=== PATIENT | male | born 1940 | race Caucasian/White ===

== ENCOUNTER → 2020-06-21 | Outpatient (CLI) | payer MEDICARE ==
[2020-06-15 11:00] VITALS: BP 116/41
[~2020-06-21] MED LIST: ASPI-630 PO; CARV25TA2 PO; CILO100T PO; CLOP75TA PO; CRESTOR40 MG PO; EZET10TA20 PO; GARL10002 PO; LOSA1TAB25 PO; NIFE60TA90 PO; OMEG-117 PO; VITA25006 PO; VITA400C37 PO
--- NOTE | 2020-06-21 16:01 | CARD ---
MR#: [id number] Date of Study: 06/21/2020 Ordering Physician: JANICE RAMIREZ, Referring Physician: JANICE RAMIREZ, Tech: Aimee Marquez [facility] APPROVED REPORT EXAM: Two-dimensional and M-mode echocardiogram with Doppler and color Doppler. Other Information Quality : Good INDICATION Cardiac Disease: CAD Surgery/Intervention CABG: Date: 1995 2D DIMENSIONS Left Atrium(2D)4.6 (1.6-4.0cm)IVSd1.0 (0.7-1.1cm) Aortic Root(2D)3.0 (2.0-3.7cm)LVDd5.5 (3.9-5.9cm) LVOT Diameter2.0 (1.8-2.4cm)PWd1.0 (0.7-1.1cm) LVDs3.4 (2.5-4.0cm)FS (%) 39.0 % SV101.7 mlLVEF(%)68.8 (>50%) Aortic Valve AoV Peak Omid.190.3cm/sAoV VTI46.1cm AO Peak GR.14.5mmHgLVOT Peak Omid.124.0cm/s AO Mean GR.9mmHgAVA (VMAX)2.10cm2 KATHI (VTI)2.27rb4VL P 1/2 Dhvi940ha Mitral Valve MV E Avjkzkmh758.6cm/sMV DECEL DOVL308ra MV A Pkcfgffc31.8cm/sE/A Ratio1.8 Tricuspid Valve TR P. Zgzrpfdr818uy/sRAP AKSQRTWQ2zpQd TR Peak Gr.51acYpIWKJ77csOv Pulmonary Vein S1 Rwjsqsol32.9cm/sD2 Mwautwws74.2cm/s LEFT VENTRICLE The left ventricle is normal size. There is normal left ventricular wall thickness. The left ventricu lar systolic function is normal. The Ejection Fraction is 55-60%. There is normal LV segmental wall m otion. Transmitral Doppler flow pattern showed moderate diastolic dysfunction. RIGHT VENTRICLE The right ventricle is normal size. The right ventricular systolic function is normal. ATRIA The left atrium is mildly dilated. The right atrium size is normal. The interatrial septum is intact with no evidence for an atrial septal defect or patent foramen ovale as noted on 2-D or Doppler imagi ng. AORTIC VALVE The aortic valve is calcified but opens well. Doppler and Color Flow revealed mild aortic regurgitati on. There is no significant aortic valvular stenosis. MITRAL VALVE The mitral valve is calcified but opens well. There is no evidence of mitral valve prolapse. There is no mitral valve stenosis. Doppler and Color-flow revealed moderate mitral regurgitation. TRICUSPID VALVE The tricuspid valve is normal in structure and function. Doppler and Color Flow revealed trace tricus pid regurgitation. There is no tricuspid valve stenosis. PULMONIC VALVE The pulmonic valve is not well visualized. Doppler and Color Flow revealed mild pulmonic valvular reg urgitation. There is no pulmonic valvular stenosis. GREAT VESSELS The aortic root is normal in size. The ascending aorta is not well seen. The IVC is normal in size an d collapses <50% with inspiration. PERICARDIAL EFFUSION There is no evidence of significant pericardial effusion. Critical Notification Critical Value: No <Conclusion> The left ventricular systolic function is normal. The Ejection Fraction is 55-60%. There is normal LV segmental wall motion. Mild aortic regurgitation. Moderate mitral regurgitation. There is no evidence of significant pericardial effusion. Signed by : Yifan Quiñonez, Electronically Approved : 06/21/2020 16:00:33
== END ==
LOC: ECHO 13:56
PROVIDERS: ATTEND Internal Medicine Cardiovascular Disease
DX: I08.8 Other rheumatic multiple valve diseases (principal); I25.10 Atherosclerotic heart disease of native coronary artery without angina pectoris
CPT/HCPCS: 93306

== ENCOUNTER 2021-11-15 17:52 | Inpatient (IN) | payer MEDICARE ==
[~2021-11-15] VITALS: Ht 175.3 cm; Wt 82.3 kg
--- NOTE | 2021-11-15 18:13 | PHYS DOC ---
Past Medical History Past Medical History: CAD, High Cholesterol, Heart Disease, Hypertension, ID, Renal Disease, Other Additional Past Medical Histor: PAD Past Surgical History: Coronary Bypass Surgery, Other Additional Past Surgical Histo: R EYE, cardiac cath with stents Smoking Status: Former Smoker Alcohol Use: Occasionally General Adult EDM: Chief Complaint: CHEST PAIN HPI: HPI: Patient is a 81 year old male past medical history of coronary artery disease ID hypertension hyperlipidemia presents with a chief complaint of chest pain. Patient states chest pain started suddenly approximately 1 hour prior to arrival 1700 hrs. located in his left chest with numbness and tingling down radiating down his right arm. Patient states his chest pain hurt like hell. He described it as a pressure and rated it a 10 out of 10. Patient self treated with sublingual nitroglycerin with mild relief. Upon EMS arrival they treated patient with nitro and aspirin. On arrival patient states his pain is a 5 out of 10 but is still present. Patient states he has associated shortness of breath and feels nauseous. Patient states current pain feels like previous heart attacks. Review of Systems: Review of Systems: Constitutional: Denies fever or chills. [] Eyes: Denies change in visual acuity. [] HENT: Denies nasal congestion or sore throat. [] Respiratory: Denies cough Positive shortness of breath. [] Cardiovascular: Positive chest pain GI: Denies abdominal pain, Positive nausea, denies vomiting, bloody stools or diarrhea. [] : Denies dysuria. [] Musculoskeletal: Denies back pain or joint pain. [] Integument: Denies rash. [] Neurologic: Denies headache, focal weakness or sensory changes. [] Endocrine: Denies polyuria or polydipsia. [] Lymphatic: Denies swollen glands. [] Psychiatric: Denies depression or anxiety. [] Heart Score: C/O Chest Pain: Yes HEART Score for Chest Pain: HEART Score for Chest Pain Response (Comments) Value History Moderately Suspicious [address] Depression 2 Age > 65 2 Risk Factors >3 Risk Factors or Hx CAD 2 Total 7 Risk Factors: Risk Factors: DM, Current or recent (<one month) smoker, HTN, HLP, family history of CAD, obesity. Risk Scores: Score 0 - 3: 2.5% MACE over next 6 weeks - Discharge Home Score 4 - 6: 20.3% MACE over next 6 weeks - Admit for Clinical Observation Score 7 - 10: 72.7% MACE over next 6 weeks - Early Invasive Strategies Allergies: Allergies: Allergies Coded Allergies Type Severity Reaction Last Updated Verified No Known Drug Allergies 11/15/21 No Physical Exam: PE: Constitutional: Well developed, well nourished, no acute distress, non-toxic appearance. [] HENT: Normocephalic, atraumatic, bilateral external ears normal, oropharynx moist, no oral exudates, nose normal. [] Eyes: PERRLA, EOMI, conjunctiva normal, no discharge. [] Neck: Normal range of motion, no tenderness, supple, no stridor. [] Cardiovascular:Heart rate regular rhythm, no murmur [] Lungs & Thorax: Bilateral breath sounds clear to auscultation [] Abdomen: Bowel sounds normal, soft, no tenderness, no masses, no pulsatile masses. [] Skin: Warm, dry, no erythema, no rash. [] Back: No tenderness, no CVA tenderness. [] Extremities: No tenderness, no cyanosis, no clubbing, ROM intact, no edema. [] Neurologic: Alert and oriented X 3, normal motor function, normal sensory function, no focal deficits noted. [] Psychologic: Affect normal, judgement normal, mood normal. [] Current Patient Data: Vital Signs: Vital Signs Date Time Temp Pulse Resp B/P (MAP) Pulse Ox O2 Delivery O2 Flow Rate FiO2 11/15/21 17:58 98.4 73 24 206/90 (128) 97 Room Air 98.4 EKG: EKG: Performed at 1801 Rate 72 Normal sinus rhythm No ST elevation No ST depression No acute ID [] Radiology/Procedures: Radiology/Procedures: []Exam: Chest one view INDICATION: Chest pain TECHNIQUE: Frontal view of the chest Comparisons: 06/13/2021 FINDINGS: Sternotomy wires are noted. The cardiomediastinal silhouette and pulmonary vessels are within normal limits. The lung and pleural spaces are clear. IMPRESSION: No acute pulmonary process. Course & Med Decision Making: Course & Med Decision Making Pertinent Labs and Imaging studies reviewed. (See chart for details) [] EMS treated patient with aspirin prior to arrival. Patient also received several doses of nitro with some improvement of his chest pain. Patient work-up negative so far. Due to patient's extensive past medical history and heart score we will place patient in the hospital for further evaluation. Sonido Disclaimer: Sonido Disclaimer: This electronic medical record was generated, in whole or in part, using a voice recognition dictation system. Departure Departure Impression: Primary Impression: Chest pain Disposition: 09 ADMITTED INPATIENT Admitting Physician: GRACIA Referrals: ANDREA GALLEGOS APRN (PCP) JENNIFER DIANE DO Nov 15, 2021 18:13
--- NOTE | 2021-11-15 18:23 | RAD ---
Exam: Chest one view INDICATION: Chest pain TECHNIQUE: Frontal view of the chest Comparisons: 06/13/2021 FINDINGS: Sternotomy wires are noted. The cardiomediastinal silhouette and pulmonary vessels are within normal limits. The lung and pleural spaces are clear. IMPRESSION: No acute pulmonary process. Electronically signed by: Emile Grimm MD (11/15/2021 6:21 PM) DARIANA
[2021-11-15 18:37] LABS: BASO # 0.1 x10^3/uL (0.0-0.2); BASO % 1 % (0-3); EOS # 0.2 x10^3/uL (0.0-0.7); EOS % 3 % (0-3); HEMATOCRIT 30.3 % (39.0-53.0); HEMOGLOBIN 10.1 g/dL (13.0-17.5); LYMPH % 13 % (24-48); MEAN CORPUSCULAR HEMOGLOBIN 31 pg (25-35); MEAN CORPUSCULAR HGB CONC 33 g/dL (31-37); MEAN CORPUSCULAR VOLUME 93 fL (79-100); MONO # 0.7 x10^3/uL (0.0-1.1); MONO % 9 % (0-9); NEUT # 5.5 x10^3/uL (1.8-7.7); NEUT % 73 % (31-73); PLATELET COUNT 186 x10^3/uL (140-400); RED BLOOD COUNT 3.27 x10^6/uL (4.30-5.70); RED CELL DISTRIBUTION WIDTH 12.9 % (11.5-14.5); WHITE BLOOD COUNT 7.5 x10^3/uL (4.0-11.0)
[2021-11-15] MEDS ORDERED: NITROGLYCERIN OINT 1 GM PACKET. TP ONE (18:45)
[2021-11-15 18:49] LABS: CALCIUM 9.1 mg/dL (8.5-10.1); CREATININE 2.2 mg/dL (0.7-1.3); POTASSIUM 3.9 mmol/L (3.5-5.1)
[2021-11-15 18:54] LABS: ALBUMIN 4.1 g/dL (3.4-5.0); ALBUMIN/GLOBULIN RATIO 1.3 (1.0-1.7); TOTAL BILIRUBIN 0.4 mg/dL (0.2-1.0); TOTAL PROTEIN 7.2 g/dL (6.4-8.2)
[2021-11-15] MEDS ORDERED: NITROGLYCERIN SUBLINGUAL 0.4 MG BOTTLE OF 25. SL PRN (19:30)
[2021-11-15] MEDS ORDERED: MORPHINE SULFATE 2 MG/ML INJ. IVP PRN (19:30)
[2021-11-15] MEDS ORDERED: HYDROcodone/APAP 5/325MG 1 TAB TABLET PO ONE (19:30)
[2021-11-15] MEDS ORDERED: ONDANSETRON PF 4 MG/2 ML VIAL. IVP PRN (19:30)
[2021-11-16] MEDS ORDERED: ONDANSETRON PF 4 MG/2 ML VIAL. ONE (00:15)
--- NOTE | 2021-11-16 00:52 | EKG ---
[facility] [address] [place] [address] Test Date: 2021-11-15 Test Time: 18:01:46 Pat Name: ALEA MCCLELLAN Department: Room: 671 1 Gender: M Hvac Tech: : 1940 Requested By: JENNIFER DIANE Order Number: [id number] Reading MD: Pb Mcclelland MD Measurements Intervals [place] Rate: 72 P: 27 IA: 192 QRS: 24 QRSD: 98 T: 46 QT: 392 QTc: 431 Interpretive Statements SINUS RHYTHM CONSIDERL LATERAL ISCHEMIA Electronically Signed On 11-16-2021 16:14:22 CDT by Pb Mcclelland MD
[2021-11-16 03:01] VITALS: BP 147/43
[2021-11-16 07:00] VITALS: BP 168/58
--- NOTE | 2021-11-16 07:42 | PDOC1 ---
History and Physical Date of Admission Date of Admission DATE: 11/16/21 TIME: 07:42 Identification/Chief Complaint Chief Complaint Chest pain Source Source: Patient History of Present Illness History of Present Illness Mr Rhodes is a 81yo male with PMHx HTN, HLD, CAD s/p remote CABG and subsequent PCI in 2010 and 2019 told his he thought he was having a heart attack. He noted substerntal chest pain at rest 8/10 Took 2 NTG with minimal relief. EMS was called. Was given nitro and ASA en route, which improved pain. No recent fevers/illness. Has a h/o CAD with CABG in and subsequent stent placement in 2010. Follows with [facility]. No recent cardiac cath or stress test. EKG sinus rhythm 72 bpm normal axis and intervals no T WI or ST segment elevation minimal ST depressions in lead I, QTC 431 Chest radiograph with no acute abnormalities. Past Medical History Cardiovascular: CAD, HTN, Hyperlipidemia, Other Pulmonary: No pertinent hx GI: GERD Heme/Onc: No pertinent hx Hepatobiliary: No pertinent hx Psych: No pertinent hx Musculoskeletal: Osteoarthritis Rheumatologic: No pertinent hx Infectious disease: No pertinent hx Renal/: Chronic renal insuff Past Surgical History Past Surgical History: CABG Family History Family History: Hypertension Social History Smoke: No ALCOHOL: none Drugs: None Current Problem List Problem List Problems Medical Problems: (1) Chest pain Status: Acute Current Medications Current Medications Current Medications Nitroglycerin (Nitro-Bid Oint) 1 inch 1X ONCE TP Last administered on 11/15/21at 18:56; Start 11/15/21 at 18:45; Stop 11/15/21 at 18:46; Status DC Acetaminophen/ Hydrocodone Bitart (Lortab 5/325) 1 tab 1X ONCE PO Last administered on 11/15/21at 20:06; Start 11/15/21 at 19:30; Stop 11/15/21 at 19:31; Status DC Ondansetron HCl (Zofran) 4 mg PRN Q8HRS PRN IVP NAUSEA/VOMITING; Start 11/15/21 at 19:30; Stop 11/16/21 at 19:29 Morphine Sulfate (Morphine Sulfate) 2 mg PRN Q2HR PRN IVP PAIN; Start 11/15/21 at 19:30; Stop 11/16/21 at 19:29 Nitroglycerin (Nitrostat) 0.4 mg PRN Q5MIN PRN SL CHEST PAIN; Start 11/15/21 at 19:30; Stop 11/16/21 at 19:29 Active Scripts Active Clopidogrel (Clopidogrel Bisulfate) 75 Mg Tablet 1 Tab PO DAILY Crestor (Rosuvastatin Calcium) 40 Mg Tablet 40 Mg PO HS Nifedipine Er (Nifedipine) 60 Mg Tab.er.24 60 Mg PO DAILY Losartan-Hctz 100-12.5 Mg Tab (Losartan/Hydrochlorothiazide) 1 Each Tablet 1 Tab PO DAILY Carvedilol 25 Mg Tablet 12.5 Mg PO BIDWMEALS Aspirin 81 Mg Tab.chew 81 Mg PO DAILY Reported Zetia (Ezetimibe) 10 Mg Tablet 10 Mg PO DAILY Garlic 1,000 Mg Capsule 1,000 Mg PO DAILY Vitamin E (Vitamin E Acetate) 400 Unit Capsule 400 Unit PO DAILY Fish Oil 1,200 mg Softgel ([place]-3/Dha/Epa/Fish Oil) 1 Each Capsule.dr 1 Cap PO DAILY 30 Days Noxifol-D3 2,500 Unit-1 mg Tab (Vitamin D3/Folic Acid) 2,500 Unit Tablet 1 Tab PO DAILY 30 Days Allergies Allergies: Coded Allergies: No Known Drug Allergies (Unverified , 11/15/21) ROS General: YES: Fatigue, Malaise; No: Chills, Night Sweats, Appetite, Other PSYCHOLOGICAL ROS: No: Anxiety, Behavioral Disorder, Concentration difficultie, Decreased libido, Depression, Disorientation, Hallucinations, Hostility, Irritablity, Memory difficulties, Mood Swings, Obsessive thoughts, Physical abuse, Sexual abuse, Sleep disturbances, Suicidal ideation, Other Eyes: No Blurry vision, No Decreased vision, No Double vision, No Dry eyes, No Excessive tearing, No Eye Pain, No Itchy Eyes, No Loss of vision, No Photophobia, No Scotomata, No Uses contacts, No Uses glasses, No Other HEENT: No: Heacaches, Visual Changes, Hearing change, Nasal congestion, Nasal discharge, Oral lesions, Sinus pain, Sore Throat, Epistaxis, Sneezing, Snoring, Tinnitus, Vertigo, Vocal changes, Other ALLERGY AND IMMUNOLOGY: No: Hives, Insect Bite Sensitivity, Itchy/Watery Eyes, Nasal Congestion, Post Nasal Drip, Seasonal Allergies, Other Hematological and Lymphatic: No: Bleeding Problems, Blood Clots, Blood Transfusions, Brusing, Night Sweats, Pallor, Swollen Lymph Nodes, Other ENDOCRINE: No: Breast Changes, Galactorrhea, Hair Pattern Changes, Hot Flashes, Malaise/lethargy, Mood Swings, Palpitations, Polydipsia/polyuria, Skin Changes, Temperature Intolerance, Unexpected Weight Changes, Other Breast: No New/Changing Breast Lumps, No Nipple changes, No Nipple discharge, No Other Respiratory: No: Cough, Hemoptysis, Orthopnea, Pleuritic Pain, Shortness of breath, SOB with excertion, Sputum Changes, Stridor, Tachypnea, Wheezing, Other Cardiovascular: yes Chest Pain; No Palpitations, No Orthopnea, No Paroxysmal Noc. Dyspnea, No Edema, No Lt Headedness, No Other Gastrointestinal: No Nausea, No Vomiting, No Abdominal Pain, No Diarrhea, No Constipation, No Melena, No Hematochezia, No Other Genitourinary: No Dysuria, No Frequency, No Incontinence, No Hematuria, No Retention, No Discharge, No Urgency, No Pain, No Flank Pain, No Other, No , No , No , No , No , No , No Musculoskeletal: No Gait Disturbance, No Joint Pain, No Joint Stiffness, No Joint Swelling, No Muscle Pain, No Muscular Weakness, No Pain In:, No Swelling In:, No Other Neurological: No Behavorial Changes, No Bowel/Bladder ControlChng, No Confusion, No Dizziness, No Gait Disturbance, No Headaches, No Impaired Coord/balance, No Memory Loss, No Numbness/Tingling, No Seizures, No Speech Problems, No Tremors, No Visual Changes, No Weakness, No Other Skin: No Dry Skin, No Eczema, No Hair Changes, No Lumps, No Mole Changes, No Mottling, No Nail Changes, No Pruritus, No Rash, No Skin Lesion Changes, No Other, No Acne Physical Exam General: Alert, Oriented X3, Cooperative, mild distress HEENT: Atraumatic, PERRLA, EOMI, Mucous membr. moist/pink Lungs: Clear to auscultation, Normal air movement Heart: S1S2, RRR, no thrills, no rubs, no gallops, no murmurs Abdomen: Normal bowel sounds, Soft, No tenderness, No hepatosplenomegaly, No masses Rectal Exam: not examined Extremities: No clubbing, No cyanosis, No edema, Normal pulses, No tende rness/swelling Skin: No rashes, No breakdown, No significant lesion Neuro: Normal gait, Normal speech, Strength at 5/5 X4 ext, Normal tone, Sensation intact, Cranial nerves 3-12 NL, Reflexes 2+ Psych/Mental Status: Mental status NL, Mood NL Vitals Vitals Vital Signs Date Time Temp Pulse Resp B/P (MAP) Pulse Ox O2 Delivery O2 Flow Rate FiO2 11/16/21 03:01 97.8 50 18 147/43 (77) 98 Nasal Cannula 2.0 97.8 Labs Labs Laboratory Tests Test 11/15/21 18:20 11/16/21 02:00 White Blood Count 7.5 x10^3/uL (4.0-11.0) Red Blood Count 3.27 x10^6/uL (4.30-5.70) Hemoglobin 10.1 g/dL (13.0-17.5) Hematocrit 30.3 % (39.0-53.0) Mean Corpuscular Volume 93 fL (79-100) Mean Corpuscular Hemoglobin 31 pg (25-35) Mean Corpuscular Hemoglobin Concent 33 g/dL (31-37) Red Cell Distribution Width 12.9 % (11.5-14.5) Platelet Count 186 x10^3/uL (140-400) Neutrophils (%) (Auto) 73 % (31-73) Lymphocytes (%) (Auto) 13 % (24-48) Monocytes (%) (Auto) 9 % (0-9) Eosinophils (%) (Auto) 3 % (0-3) Basophils (%) (Auto) 1 % (0-3) Neutrophils # (Auto) 5.5 x10^3/uL (1.8-7.7) Lymphocytes # (Auto) 1.0 x10^3/uL (1.0-4.8) Monocytes # (Auto) 0.7 x10^3/uL (0.0-1.1) Eosinophils # (Auto) 0.2 x10^3/uL (0.0-0.7) Basophils # (Auto) 0.1 x10^3/uL (0.0-0.2) Sodium Level 142 mmol/L (136-145) Potassium Level 3.9 mmol/L (3.5-5.1) Chloride Level 107 mmol/L (98-107) Carbon Dioxide Level 25 mmol/L (21-32) Anion Gap 10 (6-14) Blood Urea Nitrogen 53 mg/dL (8-26) Creatinine 2.2 mg/dL (0.7-1.3) Estimated GFR (Cockcroft-Gault) 29.0 BUN/Creatinine Ratio 24 (6-20) Glucose Level 162 mg/dL (70-99) Calcium Level 9.1 mg/dL (8.5-10.1) Total Bilirubin 0.4 mg/dL (0.2-1.0) Aspartate Amino Transf (AST/SGOT) 8 U/L (15-37) Alanine Aminotransferase (ALT/SGPT) 28 U/L (16-63) Alkaline Phosphatase 57 U/L (46-116) Troponin I High Sensitivity 50 ng/L (4-75) 650 ng/L (4-75) Total Protein 7.2 g/dL (6.4-8.2) Albumin 4.1 g/dL (3.4-5.0) Albumin/Globulin Ratio 1.3 (1.0-1.7) Laboratory Tests Test 11/15/21 18:20 11/16/21 02:00 White Blood Count 7.5 x10^3/uL (4.0-11.0) Red Blood Count 3.27 x10^6/uL (4.30-5.70) Hemoglobin 10.1 g/dL (13.0-17.5) Hematocrit 30.3 % (39.0-53.0) Mean Corpuscular Volume 93 fL (79-100) Mean Corpuscular Hemoglobin 31 pg (25-35) Mean Corpuscular Hemoglobin Concent 33 g/dL (31-37) Red Cell Distribution Width 12.9 % (11.5-14.5) Platelet Count 186 x10^3/uL (140-400) Neutrophils (%) (Auto) 73 % (31-73) Lymphocytes (%) (Auto) 13 % (24-48) Monocytes (%) (Auto) 9 % (0-9) Eosinophils (%) (Auto) 3 % (0-3) Basophils (%) (Auto) 1 % (0-3) Neutrophils # (Auto) 5.5 x10^3/uL (1.8-7.7) Lymphocytes # (Auto) 1.0 x10^3/uL (1.0-4.8) Monocytes # (Auto) 0.7 x10^3/uL (0.0-1.1) Eosinophils # (Auto) 0.2 x10^3/uL (0.0-0.7) Basophils # (Auto) 0.1 x10^3/uL (0.0-0.2) Sodium Level 142 mmol/L (136-145) Potassium Level 3.9 mmol/L (3.5-5.1) Chloride Level 107 mmol/L (98-107) Carbon Dioxide Level 25 mmol/L (21-32) Anion Gap 10 (6-14) Blood Urea Nitrogen 53 mg/dL (8-26) Creatinine 2.2 mg/dL (0.7-1.3) Estimated GFR (Cockcroft-Gault) 29.0 BUN/Creatinine Ratio 24 (6-20) Glucose Level 162 mg/dL (70-99) Calcium Level 9.1 mg/dL (8.5-10.1) Total Bilirubin 0.4 mg/dL (0.2-1.0) Aspartate Amino Transf (AST/SGOT) 8 U/L (15-37) Alanine Aminotransferase (ALT/SGPT) 28 U/L (16-63) Alkaline Phosphatase 57 U/L (46-116) Troponin I High Sensitivity 50 ng/L (4-75) 650 ng/L (4-75) Total Protein 7.2 g/dL (6.4-8.2) Albumin 4.1 g/dL (3.4-5.0) Albumin/Globulin Ratio 1.3 (1.0-1.7) Images Images Chest radiograph: Sternotomy wires are noted. The cardiomediastinal silhouette and pulmonary vessels are within normal limits. The lung and pleural spaces are clear. IMPRESSION: No acute pulmonary process. VTE Prophylaxis Ordered VTE Prophylaxis Devices: Yes VTE Pharmacological Prophylaxi: Yes Assessment/Plan Assessment/Plan NSTEMI - on heparin GTT. High risk CAD, classic symptoms relieved with 2x NTG. CAD; s/p CABG 96 and PCI/stent in 2010. S/P PCI with stenting 06/14/2020 to saphenous vein graft to the obtuse marginal as well. Hypertension - prn hydralazine, nitropaste Hyperlipidemia -statin CKD - stable, will monitor renal function Carotid arterial disease - historic Chronic venous insufficiency FEN - NPO PPX - heparin FULL CODE Dispo - inpatient Justifications for Admission Other Justification CHARMAINE FLORIAN MD Nov 16, 2021 07:42
[2021-11-16] MEDS ORDERED: ONDANSETRON PF 4 MG/2 ML VIAL. IVP PRN (07:45)
[2021-11-16] MEDS ORDERED: ACETAMINOPHEN 325 MG TABLET. PO PRN (07:45)
[2021-11-16] MEDS ORDERED: HYDR-2869 PO (08:13)
[2021-11-16] MEDS ORDERED: HEPARIN for IV BOLUS 10,000 UNIT/10 ML VIAL. IV PRN (08:15)
[2021-11-16] MEDS ORDERED: NIFE30TA15 PO (08:17)
[2021-11-16] MEDS ORDERED: BRIM5DRO EACHEYE (08:25)
[2021-11-16] MEDS ORDERED: TORS10TA3 PO (08:46)
[2021-11-16] MEDS ORDERED: HEPARIN for IV BOLUS 10,000 UNIT/10 ML VIAL. IV ONE (09:00)
[2021-11-16] MEDS: HEPARIN 25,000UTS/250ML PREMIX 250 ML IV PRN (09:39)
[2021-11-16 11:00] VITALS: BP 177/63
[2021-11-16] MEDS ORDERED: IV NORMAL SALINE 1000ML BAG 1,000 ML IV ONE (13:45)
[2021-11-16 15:00] VITALS: BP 190/64
--- NOTE | 2021-11-16 16:18 | PDOC2 ---
CARDIOLOGY CONSULT NOTE DATE OF SERVICE: DATE: 11/16/21 TIME: 16:15 CHIEF COMPLAINT: Chest pain HPI: Shimon is a pleasant 81-year-old man who is well-known to our service who comes into the hospital today for acute onset of chest pain. He was noted to have an elevated blood pressure above 200 upon arrival. The patient was in his usual state of health and apparently watching TV when he began to notice sudden onset of chest pain similar nature to 2019 when he had PCI to his left circumflex vein graft. He currently denies any syncope, palpitations, orthopnea or PND. He has been compliant with his medications. He recently also underwent a stress test in July 2021 which was unremarkable. In any case, the patient has been admitted and initiated on appropriate medical therapy including heparinization. PMHX: 1. Coronary artery disease with prior bypass surgery 2. Hypertension 3. Chronic kidney disease SOCHX: No alcohol, tobacco or illicit drug FAMHX: Noncontributory CURRENT MEDS: Current Medications Medications (Trade) Dose Ordered Sig/Vinicio Route PRN Reason Start Time Stop Time Status Last Admin Dose Admin Nitroglycerin (Nitro-Bid Oint) 1 inch 1X ONCE TP 11/15/21 18:45 11/15/21 18:46 DC 11/15/21 18:56 Acetaminophen/ Hydrocodone Bitart (Lortab 5/325) 1 tab 1X ONCE PO 11/15/21 19:30 11/15/21 19:31 DC 11/15/21 20:06 Heparin Sodium (Porcine) (Heparin Sodium) 4,000 unit 1X ONCE IV 11/16/21 09:00 11/16/21 09:01 DC 11/16/21 09:38 Heparin Sodium/ Dextrose 250 ml @ 9.768 mls/ hr CONT PRN IV PER PROTOCOL 11/16/21 08:15 11/16/21 09:39 ALLERGIES: Allergies Coded Allergies Type Severity Reaction Last Updated Verified No Known Drug Allergies 11/15/21 No ROS: Negative for 10 out of 14 systems reviewed unless otherwise mentioned above in HPI PHYSICAL EXAM: Vital Signs/I&O: Vital Signs Date Time Temp Pulse Resp B/P (MAP) Pulse Ox O2 Delivery O2 Flow Rate FiO2 11/16/21 11:00 98.4 50 18 177/63 (101) 97 Nasal Cannula 2.0 98.4 I & O 311/15/21 11/16/21 15:00 23:00 07:00 Intake Total 500 ml Output Total 425 ml Balance -425 ml 500 ml Physical Exam: GEN.: No apparent distress. Alert and oriented. HEENT: Head is normocephalic, atraumatic NECK: Supple. LUNGS: Clear to auscultation. HEART: RRR, S1, S2 present. Peripheral pulses intact ABDOMEN: Soft, nontender. Positive bowel sounds. EXTREMITIES: Without any cyanosis. NEUROLOGIC: Normal speech, normal tone PSYCHIATRIC: Normal affect, normal mood. SKIN: No ulcerations DIAGNOSTIC TESTING: Myocardial enzymes are elevated at 653. EKG reviewed and demonstrates mild lateral ST segment depression. Telemetry reviewed Lab Laboratory Tests Test 11/15/21 18:20 11/16/21 02:00 11/16/21 08:20 11/16/21 11:14 White Blood Count 7.5 x10^3/uL (4.0-11.0) Red Blood Count 3.27 x10^6/uL (4.30-5.70) L Hemoglobin 10.1 g/dL (13.0-17.5) L Hematocrit 30.3 % (39.0-53.0) L Mean Corpuscular Volume 93 fL (79-100) Mean Corpuscular Hemoglobin 31 pg (25-35) Mean Corpuscular Hemoglobin Concent 33 g/dL (31-37) Red Cell Distribution Width 12.9 % (11.5-14.5) Platelet Count 186 x10^3/uL (140-400) Neutrophils (%) (Auto) 73 % (31-73) Lymphocytes (%) (Auto) 13 % (24-48) L Monocytes (%) (Auto) 9 % (0-9) Eosinophils (%) (Auto) 3 % (0-3) Basophils (%) (Auto) 1 % (0-3) Neutrophils # (Auto) 5.5 x10^3/uL (1.8-7.7) Lymphocytes # (Auto) 1.0 x10^3/uL (1.0-4.8) Monocytes # (Auto) 0.7 x10^3/uL (0.0-1.1) Eosinophils # (Auto) 0.2 x10^3/uL (0.0-0.7) Basophils # (Auto) 0.1 x10^3/uL (0.0-0.2) Sodium Level 142 mmol/L (136-145) Potassium Level 3.9 mmol/L (3.5-5.1) Chloride Level 107 mmol/L (98-107) Carbon Dioxide Level 25 mmol/L (21-32) Anion Gap 10 (6-14) Blood Urea Nitrogen 53 mg/dL (8-26) H Creatinine 2.2 mg/dL (0.7-1.3) H Estimated GFR (Cockcroft-Gault) 29.0 BUN/Creatinine Ratio 24 (6-20) H Glucose Level 162 mg/dL (70-99) H Calcium Level 9.1 mg/dL (8.5-10.1) Total Bilirubin 0.4 mg/dL (0.2-1.0) Aspartate Amino Transf (AST/SGOT) 8 U/L (15-37) L Alkaline Phosphatase 57 U/L (46-116) Troponin I High Sensitivity 50 ng/L (4-75) 650 ng/L (4-75) H 683 ng/L (4-75) H Total Protein 7.2 g/dL (6.4-8.2) Albumin 4.1 g/dL (3.4-5.0) Albumin/Globulin Ratio 1.3 (1.0-1.7) Heparin Anti-Xa Act, Unfractionated 0.30 IU/mL (0.30-0.70) Laboratory Tests 11/15/21 18:20 ASSESSMENT: 1. Non-ST elevation ND 2. Hypertensive urgency 3. Coronary artery disease 4. Dyslipidemia 5. Chronic kidney disease PLAN: 1. We will plan for cardiac catheterization on Thursday. 2. In the meantime continue home medical therapy and will start IV hydration. 3. Supportive care. Obtain echocardiogram. I had a discussion with the patient regarding the risks and benefits especially in light of the patient's chronic kidney disease but it would be appropriate to rule out any occult worsening of his coronary artery disease especially given that the symptoms were acute in nature. Negative this consultation we will follow along closely JANICE RAMIREZ MD Nov 16, 2021 16:18
[2021-11-16] MEDS: CLOPIDOGREL BISULFATE 75 MG TABLET PO SCH (16:32)
[2021-11-16] MEDS: ASPIRIN CHEWABLE 81 MG TABLET. PO SCH (16:32)
[2021-11-16] MEDS: LOSARTAN POTASSIUM 50 MG TABLET. PO SCH (16:33)
[2021-11-16] MEDS: hydroCHLOROthiazide 12.5 MG CAPSULE PO SCH (16:33)
[2021-11-16] MEDS: CARVEDILOL 12.5 MG TABLET. PO SCH (17:10)
[2021-11-16 19:47] VITALS: BP 126/43
[2021-11-16] MEDS: ATORVASTATIN CALCIUM 40 MG TABLET. PO SCH (21:32)
[2021-11-16 23:15] VITALS: BP 130/45
[2021-11-17] VITALS (9 sets, daily range): BP systolic 132–161; BP diastolic 48–80
[2021-11-17 03:53] LABS: HEMATOCRIT 27.2 % (39.0-53.0); HEMOGLOBIN 8.9 g/dL (13.0-17.5); RED BLOOD COUNT 2.93 x10^6/uL (4.30-5.70); RED CELL DISTRIBUTION WIDTH 12.9 % (11.5-14.5); WHITE BLOOD COUNT 7.2 x10^3/uL (4.0-11.0)
[2021-11-17 04:07] LABS: CALCIUM 8.6 mg/dL (8.5-10.1); CREATININE 1.8 mg/dL (0.7-1.3); GFR 36.6
[2021-11-17] MEDS: CARVEDILOL 12.5 MG TABLET. PO SCH ×2 (07:43→17:00)
[2021-11-17] MEDS: HEPARIN 25,000UTS/250ML PREMIX 250 ML IV PRN (08:13)
[2021-11-17] MEDS: hydroCHLOROthiazide 12.5 MG CAPSULE PO SCH (09:00)
[2021-11-17] MEDS: ASPIRIN CHEWABLE 81 MG TABLET. PO SCH (09:12)
[2021-11-17] MEDS: CLOPIDOGREL BISULFATE 75 MG TABLET PO SCH (09:12)
--- NOTE | 2021-11-17 09:46 | PDOC ---
[facility] PROGRESS NOTE Date of Service DOS: DATE: 11/17/21 TIME: 09:43 Chief Complaint Chief Complaint NSTEMI - on heparin GTT. High risk CAD, classic symptoms relieved with 2x NTG. CAD; s/p CABG and PCI/stent in 2010. S/P PCI with stenting 06/14/2020 to saphenous vein graft to the obtuse marginal as well. Hypertension - prn hydralazine, nitropaste Hyperlipidemia -statin CKD - stable, will monitor renal function Carotid arterial disease - historic Chronic venous insufficiency Elevated fasting glucose - check A1c FEN - NPO after midnight PPX - heparin FULL CODE Dispo - inpatient History of Present Illness History of Present Illness Mr Rhodes is a 81yo male with PMHx HTN, HLD, CAD s/p remote CABG and subsequent PCI in 2010 and 2019 told his he thought he was having a heart attack. He noted substernal chest pain at rest 8/10 Took 2 NTG with minimal relief. EMS was called. Was given nitro and ASA en route, which improved pain. No recent fevers/illness. Has a h/o CAD with CABG in and subsequent stent placement in 2010. Follows with [facility]. No recent cardiac cath or stress test. EKG sinus rhythm 72 bpm normal axis and intervals no T WI or ST segment elevation minimal ST depressions in lead I, QTC 431 Chest radiograph with no acute abnormalities. Placed on heparin GTT and admitted for further care with cardiology consultation. 11/17: Chest pain is nearly resolved. No shortness of breath. Does have occasional twinges. After he discussed with cardiology he is opted for left coronary angiogram in the morning on 11/18/2021. Vitals/I&O Vitals/I&O: Vital Signs Date Time Temp Pulse Resp B/P (MAP) Pulse Ox O2 Delivery O2 Flow Rate FiO2 11/17/21 09:13 54 132/49 11/17/21 03:23 98.0 20 95 Nasal Cannula 2.0 98.0 I & O 11/16/21 11/16/21 11/17/21 15:00 23:00 07:00 Intake Total 400 ml 0 ml Output Total 700 ml 200 ml Balance -700 ml 400 ml -200 ml Physical Exam General: Alert, Oriented X3, Cooperative, mild distress Abdomen: Normal bowel sounds, Soft, No tenderness, No hepatosplenomegaly, No masses Extremities: No clubbing, No cyanosis, No edema, Normal pulses, No tenderness/swelling Skin: No rashes, No breakdown, No significant lesion Labs Labs: Laboratory Tests Test 11/16/21 11:14 11/16/21 18:10 11/17/21 03:15 Heparin Anti-Xa Act, Unfractionated 0.30 IU/mL (0.30-0.70) 0.12 IU/mL (0.30-0.70) 0.34 IU/mL (0.30-0.70) White Blood Count 7.2 x10^3/uL (4.0-11.0) Red Blood Count 2.93 x10^6/uL (4.30-5.70) Hemoglobin 8.9 g/dL (13.0-17.5) Hematocrit 27.2 % (39.0-53.0) Mean Corpuscular Volume 93 fL (79-100) Mean Corpuscular Hemoglobin 31 pg (25-35) Mean Corpuscular Hemoglobin Concent 33 g/dL (31-37) Red Cell Distribution Width 12.9 % (11.5-14.5) Platelet Count 161 x10^3/uL (140-400) Sodium Level 140 mmol/L (136-145) Potassium Level 4.0 mmol/L (3.5-5.1) Chloride Level 109 mmol/L (98-107) Carbon Dioxide Level 25 mmol/L (21-32) Anion Gap 6 (6-14) Blood Urea Nitrogen 46 mg/dL (8-26) Creatinine 1.8 mg/dL (0.7-1.3) Estimated GFR (Cockcroft-Gault) 36.6 Glucose Level 112 mg/dL (70-99) Calcium Level 8.6 mg/dL (8.5-10.1) Assessment and Plan Assessmemt and Plan Problems Medical Problems: (1) Chest pain Status: Acute Comment Review of Relevant I have reviewed the following items samm (where applicable) has been applied. Medications: Current Medications Medications (Trade) Dose Ordered Sig/Vinicio Route PRN Reason Start Time Stop Time Status Last Admin Dose Admin Sodium Chloride 1,000 ml @ 75 mls/hr 1X ONCE IV 11/16/21 13:45 11/17/21 03:04 DC 11/16/21 16:32 Hydralazine HCl (Apresoline) 50 mg TID PO 11/16/21 14:30 11/17/21 09:13 Carvedilol (Coreg) 12.5 mg BIDWMEALS PO 11/16/21 17:00 11/16/21 17:10 Losartan Potassium (Cozaar) 100 mg DAILY PO 11/16/21 15:00 11/16/21 16:33 Nifedipine (Procardia Xl) 90 mg DAILY PO 11/16/21 15:00 11/17/21 09:13 Atorvastatin Calcium (Lipitor) 80 mg HS PO 11/16/21 21:00 11/16/21 21:32 Aspirin (Aspirin Chewable) 81 mg DAILY PO 11/16/21 14:30 11/17/21 09:12 Clopidogrel Bisulfate (Plavix) 75 mg DAILY PO 11/16/21 14:30 11/17/21 09:12 Hydrochlorothiazide (Microzide) 12.5 mg DAILY PO 11/16/21 15:00 11/16/21 16:33 Justifications for Admission Other Justification CHARMAINE FLORIAN MD Nov 17, 2021 09:46
--- NOTE | 2021-11-17 10:39 | PDOC ---
CARDIOLOGY PROGRESS NOTE SUBJECTIVE: No acute events overnight. Reports chest pain is improved. No syncope or palps. OBJECTIVE: Vital Signs/I&O: Vital Signs Date Time Temp Pulse Resp B/P (MAP) Pulse Ox O2 Delivery O2 Flow Rate FiO2 11/17/21 09:13 54 132/49 11/17/21 07:00 97.9 18 93 Nasal Cannula 2.0 97.9 I & O 11/16/21 11/16/21 11/17/21 15:00 23:00 07:00 Intake Total 400 ml 0 ml Output Total 700 ml 200 ml Balance -700 ml 400 ml -200 ml Objective: GEN.: No apparent distress. Alert and oriented. HEENT: Head is normocephalic, atraumatic NECK: Supple. LUNGS: Clear to auscultation. HEART: RRR, S1, S2 present. Peripheral pulses intact ABDOMEN: Soft, nontender. Positive bowel sounds. EXTREMITIES: Without any cyanosis. NEUROLOGIC: Normal speech, normal tone PSYCHIATRIC: Normal affect, normal mood. SKIN: No ulcerations CURRENT MEDICATIONS: Current Medications Medications (Trade) Dose Ordered Sig/Vinicio Route PRN Reason Start Time Stop Time Status Last Admin Dose Admin Sodium Chloride 1,000 ml @ 75 mls/hr 1X ONCE IV 11/16/21 13:45 11/17/21 03:04 DC 11/16/21 16:32 Hydralazine HCl (Apresoline) 50 mg TID PO 11/16/21 14:30 11/17/21 09:13 Carvedilol (Coreg) 12.5 mg BIDWMEALS PO 11/16/21 17:00 11/16/21 17:10 Losartan Potassium (Cozaar) 100 mg DAILY PO 11/16/21 15:00 11/16/21 16:33 Nifedipine (Procardia Xl) 90 mg DAILY PO 11/16/21 15:00 11/17/21 09:13 Atorvastatin Calcium (Lipitor) 80 mg HS PO 11/16/21 21:00 11/16/21 21:32 Aspirin (Aspirin Chewable) 81 mg DAILY PO 11/16/21 14:30 11/17/21 09:12 Clopidogrel Bisulfate (Plavix) 75 mg DAILY PO 11/16/21 14:30 11/17/21 09:12 Hydrochlorothiazide (Microzide) 12.5 mg DAILY PO 11/16/21 15:00 11/16/21 16:33 DIAGNOSTIC TESTING: Labs reviewed. Will add on trop to morning labs. Labs: Laboratory Tests 11/17/21 03:15 Laboratory Tests Test 11/16/21 11:14 11/16/21 18:10 11/17/21 03:15 11/17/21 09:20 Heparin Anti-Xa Act, Unfractionated 0.30 IU/mL (0.30-0.70) 0.12 IU/mL (0.30-0.70) L 0.34 IU/mL (0.30-0.70) 0.29 IU/mL (0.30-0.70) L White Blood Count 7.2 x10^3/uL (4.0-11.0) Red Blood Count 2.93 x10^6/uL (4.30-5.70) L Hemoglobin 8.9 g/dL (13.0-17.5) L Hematocrit 27.2 % (39.0-53.0) L Mean Corpuscular Volume 93 fL (79-100) Mean Corpuscular Hemoglobin 31 pg (25-35) Mean Corpuscular Hemoglobin Concent 33 g/dL (31-37) Red Cell Distribution Width 12.9 % (11.5-14.5) Platelet Count 161 x10^3/uL (140-400) Sodium Level 140 mmol/L (136-145) Potassium Level 4.0 mmol/L (3.5-5.1) Chloride Level 109 mmol/L (98-107) H Carbon Dioxide Level 25 mmol/L (21-32) Anion Gap 6 (6-14) Blood Urea Nitrogen 46 mg/dL (8-26) H Creatinine 1.8 mg/dL (0.7-1.3) H Estimated GFR (Cockcroft-Gault) 36.6 Glucose Level 112 mg/dL (70-99) H Calcium Level 8.6 mg/dL (8.5-10.1) ASSESSMENT: 1. NSTEMI 2. HTN 3. DLP 4. PAD with hx of vascular disease. PLAN: 1. Continue present meds with asa, hep gtt and plavix. 2. We will plan for c tomorrow. Discussed r/b/a. 3. Cr is improved. Await echo as well. Supportive care. Justicifation of Admission Dx: Justifications for Admission: Justification of Admission Dx: Yes NV: Acute NSTEMI JANICE RAMIREZ MD Nov 17, 2021 10:39
[2021-11-17] MEDS: LOSARTAN POTASSIUM 50 MG TABLET. PO SCH (13:18)
[2021-11-17] MEDS ORDERED: ANTI-COAG MONITOR BY PHARMACY. MC PRN (15:15)
--- NOTE | 2021-11-17 16:55 | RAD ---
INDICATION: Reason: edema >right ower extremity / Spl. Instructions: / History: COMPARISON: July 2020 FINDINGS: Spectral Doppler, color and grayscale ultrasound images are obtained of the bilateral leg arterial sy stem. Elevated velocities are seen within the arterial system of the bilateral legs. This includes within t he right common femoral and superficial femoral artery with the common femoral measuring up to 229 cm /S. On the left the common femoral artery measures up to 271 cm/S which is elevated. There is also bilate ral elevated velocities within the deep femoral arteries measuring up to 308 cm/S on the left. There are some additional elevated velocity seen bilaterally to a lesser degree including right peron eal artery and left peroneal artery. Bilateral plaque is seen. There is blunting of the right superficial femoral artery waveform with progression distally where it appears more monophasic distally within the right leg and extending through the popliteal artery and into the calf. Monophasic waveform throughout the left leg arterial system although a portion appears borderline bip hasic within the superficial femoral artery. Also borderline biphasic waveform within the popliteal a rtery. Monophasic waveforms in the calf. Tardus parvus morphology. IMPRESSION: * Multifocal plaque throughout the bilateral leg arterial system with some regions of increased dione ocity as well as blunting of the waveforms. This could be secondary to multifocal regions of stenosis which does appear hemodynamically significant given the waveform alteration. Electronically signed by: José Madera MD (11/17/2021 4:52 PM) [id number]
[2021-11-17] MEDS: ATORVASTATIN CALCIUM 40 MG TABLET. PO SCH (21:06)
[2021-11-17] MEDS ORDERED: NITROGLYCERIN SUBLINGUAL 0.4 MG BOTTLE OF 25. SL ONE (23:33)
[2021-11-17] MEDS ORDERED: NITROGLYCERIN SUBLINGUAL 0.4 MG BOTTLE OF 25. SL PRN (23:45)
--- NOTE | 2021-11-17 23:56 | EKG ---
[facility] [address] [place] [address] Test Date: 2021-11-17 Test Time: 22:44:38 Pat Name: ALEA MCCLELLAN Department: Room: 671 1 Gender: M Dredging Inspector: GURINDER : 1940 Requested By: LEE LOPEZ Order Number: [id number] Reading MD: Pb Mcclelland MD Measurements Intervals [place] Rate: 135 P: 0 SD: 152 QRS: 21 QRSD: 82 T: 168 QT: 234 QTc: 355 Interpretive Statements SINUS TACHYCARDIA ANTEROLATERAL ISCHEMIA Electronically Signed On 11-19-2021 6:55:20 CDT by Pb Mcclelland MD
[2021-11-18] VITALS (20 sets, daily range): BP systolic 127–180; BP diastolic 57–84
[2021-11-18] MEDS ORDERED: METOPROLOL IV PUSH 5 MG/5 ML VIAL. IVP ONE (00:15)
[2021-11-18] MEDS ORDERED: MORPHINE SULFATE 2 MG/ML INJ. IVP PRN (00:15)
[2021-11-18] MEDS ORDERED: DIGOXIN IV 500 MCG/2 ML AMPUL. IV ONE (00:15)
--- NOTE | 2021-11-18 00:40 | NUR ---
Called to see the patient in 671 who was experiencing chest pain that radiated down his left arm. On my way up the nurse called a rapid response. Patient appeared uncomfortable and HR had gone from the low 50's to 130-160. B/P was 140's systolically. RN stated he had been in SR when she noticed he was Aflutter. Now patient is in Afib with occassional PVC's. Dr. Mcclelland was called and orders were received for Metoprolol, Digoxin, and Morphine. Pt had been given 3 SL Nitro tabs at onset of chest pain with no improvement. EKG was done and text to Dr. Mcclelland by the Nursing Color Room Attendant. After all meds were given patient was still experiencing chest pain and it was decided by Dr. Mcclelland that the brush clearing laborer should be called in. Patient called his son to bring his in. Awaiting brush clearing laborer crew to get here. Addendum: 11/18/21 at 0148 by YELITZA SHARMA RN Amended: Links added.
[2021-11-18] MEDS ORDERED: IODIXANOL 320 MG/ML 100 ML VIAL. ONE ×2 (00:58→01:35)
[2021-11-18] MEDS ORDERED: LIDOCAINE 1% Multi-Dose 20 ML VIAL. ONE (00:58)
[2021-11-18] MEDS ORDERED: HEPARIN for ARTERIAL LINE 1,500 ML ONE (00:59)
[2021-11-18] MEDS ORDERED: MIDAZOLAM HCL/PF 2 MG/2 ML VIAL. ONE (01:03)
[2021-11-18] MEDS ORDERED: fentaNYL PF VIAL 100 MCG/2 ML VIAL ONE (01:03)
--- NOTE | 2021-11-18 01:17 | NUR ---
Pt to laborer petroleum refinery for heart cath, consent sign and placed on chart, family at bedside. pmrn
--- NOTE | 2021-11-18 01:20 | NUR ---
At 2325 pt c/o chest pain with radiation down left arm, prior to compliants of pain this rn noted afib on pt tele monitor. Rapid Response initiated, 12 lead ekg obtained, 2l o2 per nc on, Dr Mcclelland notified. new orders received to give IV digoxin, IV metoprolol, and IV morphine for pain. nitro SL 0.4mg x3 given. Pt verbalized medicine helped some ,but pain still there. Dr Mcclelland plan to do heart cath tonight, consent sign ,family notified. pmrn
[2021-11-18] MEDS ORDERED: HEPARIN for IV BOLUS 10,000 UNIT/10 ML VIAL. ONE (01:40)
[2021-11-18] MEDS ORDERED: IODIXANOL 320 MG/ML 100 ML VIAL. IART ONE (02:00)
[2021-11-18] MEDS ORDERED: MIDAZOLAM HCL/PF 2 MG/2 ML VIAL. IV ONE (02:00)
[2021-11-18] MEDS ORDERED: LIDOCAINE 1% Multi-Dose 20 ML VIAL. INJ ONE (02:00)
[2021-11-18] MEDS ORDERED: fentaNYL PF VIAL 100 MCG/2 ML VIAL IV ONE (02:00)
[2021-11-18] MEDS ORDERED: CLOPIDOGREL BISULFATE 75 MG TABLET ONE (02:05)
[2021-11-18] MEDS ORDERED: CLOPIDOGREL BISULFATE 75 MG TABLET PO ONE (02:30)
[2021-11-18] MEDS ORDERED: HEPARIN for IV BOLUS 10,000 UNIT/10 ML VIAL. IV ONE (02:30)
[2021-11-18] MEDS ORDERED: NITROGLYCERIN 200 MCG/2 ML SYRINGE FOR CATH/VASC LAB. IART ONE (02:30)
[2021-11-18] MEDS ORDERED: IV NORMAL SALINE 1000ML BAG 1,000 ML IV SCH (02:45)
--- NOTE | 2021-11-18 02:58 | NUR ---
PT BACK FROM TOUR COORDINATOR, WITH FAMILY AT BEDSIDE. PT ALERT AND ORIENTED X4, DENIES PAIN AT THIS TIME. PT LEFT GROIN SOFT W/ ANGIOSEAL INTACT, LEFT PEDAL PULSE PATENT VSS. PT TO LAY FLAT FOR 3HRS PER ORDER. WILL CONT TO MONITOR PT STATUS AND SAFETY. PMRN
[2021-11-18 04:07] LABS: HEMOGLOBIN A1C 5.6 % (4.8-5.6)
[2021-11-18 06:09] LABS: HEMATOCRIT 26.9 % (39.0-53.0); HEMOGLOBIN 9.1 g/dL (13.0-17.5); RED BLOOD COUNT 2.91 x10^6/uL (4.30-5.70); RED CELL DISTRIBUTION WIDTH 12.6 % (11.5-14.5); WHITE BLOOD COUNT 6.4 x10^3/uL (4.0-11.0)
[2021-11-18 06:27] LABS: CALCIUM 8.3 mg/dL (8.5-10.1); CREATININE 1.7 mg/dL (0.7-1.3); GFR 39.1; POTASSIUM 4.3 mmol/L (3.5-5.1)
[2021-11-18] MEDS ORDERED: NITROGLYCERIN 200 MCG/2 ML SYRINGE FOR CATH/VASC LAB. ONE (07:56)
[2021-11-18] MEDS: CLOPIDOGREL BISULFATE 75 MG TABLET PO SCH (09:00)
[2021-11-18] MEDS: LOSARTAN POTASSIUM 50 MG TABLET. PO SCH (09:04)
[2021-11-18] MEDS: ASPIRIN CHEWABLE 81 MG TABLET. PO SCH (09:05)
[2021-11-18] MEDS: hydroCHLOROthiazide 12.5 MG CAPSULE PO SCH (09:05)
[2021-11-18] MEDS: CARVEDILOL 12.5 MG TABLET. PO SCH ×2 (09:10→17:15)
--- NOTE | 2021-11-18 12:08 | EKG ---
[facility] [address] [place] [address] Test Date: 2021-11-18 Test Time: 12:09:28 Pat Name: ALEA MCCLELLAN Department: Room: 1 1 Gender: M Plane Tableman: DELVIN : 1940 Requested By: JANICE RAMIREZ Order Number: [id number] Reading MD: Measurements Intervals [place] Rate: 51 P: 38 DC: 196 QRS: 16 QRSD: 92 T: 38 QT: 430 QTc: 398 Interpretive Statements SINUS RHYTHM NO SPECIFIC ECG ABNORMALITIES RI6.01 Compared to ECG 11/17/2021 22:44:38 Sinus tachycardia no longer present ST (T wave) deviation no longer present
--- NOTE | 2021-11-18 12:41 | PDOC ---
[facility] [facility] PROGRESS NOTE Date of Service DOS: DATE: 11/18/21 TIME: 12:39 Chief Complaint Chief Complaint NSTEMI - on heparin GTT. High risk CAD, classic symptoms relieved with 2x NTG. CAD; s/p CABG and PCI/stent in 2010. S/P PCI with stenting 06/14/2020 to saphenous vein graft to the obtuse marginal as well. Benito bhakta RVR -quickly resolved over several hours on 11/19/2019 2 in the morning Hypertension - prn hydralazine, nitropaste Hyperlipidemia -statin CKD - stable, will monitor renal function Carotid arterial disease - historic Chronic venous insufficiency Elevated fasting glucose - A1c 5.6 FEN - Cardiac diet PPX - heparin FULL CODE Dispo - inpatient pending cardiology recommendations could possibly discharge within the next 24 hours. History of Present Illness History of Present Illness Mr Rhodes is a 81yo male with PMHx HTN, HLD, CAD s/p remote CABG and subsequent PCI in 2010 and 2019 told his he thought he was having a heart attack. He noted substernal chest pain at rest 04/02 Took 2 NTG with minimal relief. EMS was called. Was given nitro and ASA en route, which improved pain. No recent fevers/illness. Has a h/o CAD with CABG in and subsequent stent placement in 2010. Follows with [facility]. No recent cardiac cath or stress test. EKG sinus rhythm 72 bpm normal axis and intervals no T WI or ST segment elevation minimal ST depressions in lead I, QTC 431 Chest radiograph with no acute abnormalities. Placed on heparin GTT and admitted for further care with cardiology consultation. 11/17: Chest pain is nearly resolved. No shortness of breath. Does have occasional twinges. After he discussed with cardiology he is opted for left coronary angiogram 11/18: Around 1 AM patient experienced atrial fibrillation with RVR was not symptomatic until a few minutes later when he experienced the same substernal chest pain significant pain in the left arm. He went urgently to the cardiac catheterization and had in-stent angioplasty with significant relief no new stent placement. Still his carvedilol and calcium channel apolonia. Is normal sinus rhythm in the 50s and pain-free this morning eating breakfast. Vitals/I&O Vitals/I&O: Vital Signs Date Time Temp Pulse Resp B/P (MAP) Pulse Ox O2 Delivery O2 Flow Rate FiO2 11/18/21 10:59 98.8 54 16 156/70 (98) 95 Room Air 98.8 11/18/21 08:00 2.0 I & O 11/17/21 11/17/21 11/18/21 15:00 23:00 07:00 Intake Total 1275 ml 1658 ml 50 ml Output Total 650 ml 750 ml Balance 1275 ml 1008 ml -700 ml Physical Exam General: Alert, Oriented X3, Cooperative, mild distress Abdomen: Normal bowel sounds, Soft, No tenderness, No hepatosplenomegaly, No masses Extremities: No clubbing, No cyanosis, No edema, Normal pulses, No tenderness/swelling Skin: No rashes, No breakdown, No significant lesion Labs Labs: Laboratory Tests Test 11/17/21 16:34 11/17/21 22:48 11/18/21 00:04 11/18/21 02:09 Heparin Anti-Xa Act, Unfractionated 0.44 IU/mL (0.30-0.70) 0.34 IU/mL (0.30-0.70) Troponin I High Sensitivity 136 ng/L (4-75) Activated Clotting Time 186 sec (92-181) Test 11/18/21 05:40 White Blood Count 6.4 x10^3/uL (4.0-11.0) Red Blood Count 2.91 x10^6/uL (4.30-5.70) Hemoglobin 9.1 g/dL (13.0-17.5) Hematocrit 26.9 % (39.0-53.0) Mean Corpuscular Volume 93 fL (79-100) Mean Corpuscular Hemoglobin 31 pg (25-35) Mean Corpuscular Hemoglobin Concent 34 g/dL (31-37) Red Cell Distribution Width 12.6 % (11.5-14.5) Platelet Count 159 x10^3/uL (140-400) Sodium Level 142 mmol/L (136-145) Potassium Level 4.3 mmol/L (3.5-5.1) Chloride Level 108 mmol/L (98-107) Carbon Dioxide Level 25 mmol/L (21-32) Anion Gap 9 (6-14) Blood Urea Nitrogen 34 mg/dL (8-26) Creatinine 1.7 mg/dL (0.7-1.3) Estimated GFR (Cockcroft-Gault) 39.1 Glucose Level 99 mg/dL (70-99) Calcium Level 8.3 mg/dL (8.5-10.1) Assessment and Plan Assessmemt and Plan Problems Medical Problems: (1) Chest pain Status: Acute Comment Review of Relevant I have reviewed the following items samm (where applicable) has been applied. Medications: Current Medications Medications (Trade) Dose Ordered Sig/Vinicio Route PRN Reason Start Time Stop Time Status Last Admin Dose Admin Info (Anti-Coagulation Monitoring By Pharmacy) 1 each PRN DAILY PRN MC PER PROTOCOL 11/17/21 15:15 11/17/21 15:14 Nitroglycerin (Nitrostat) 0.4 mg PRN Q5MIN PRN SL CHEST PAIN 11/17/21 23:45 11/17/21 23:49 Morphine Sulfate (Morphine Sulfate) 2 mg PRN Q2HR PRN IVP SEVERE PAIN 7-10 11/18/21 00:15 11/18/21 00:15 Metoprolol Tartrate (Lopressor Vial) 5 mg 1X ONCE IVP 11/18/21 00:15 11/18/21 00:16 DC 11/18/21 00:16 Digoxin (Lanoxin) 500 mcg 1X ONCE IV 11/18/21 00:15 11/18/21 00:16 DC 11/18/21 00:15 Heparin Sodium/ Sodium Chloride (HEPARIN for ARTERIAL LINE FLUSH) 1,000 unit 1X ONCE IART 11/18/21 01:30 11/18/21 01:40 DC 11/18/21 01:30 Heparin Sodium/ Sodium Chloride (HEPARIN for ARTERIAL LINE FLUSH) 1,000 unit 1X ONCE IART 11/18/21 02:00 11/18/21 02:01 DC 11/18/21 01:48 Midazolam HCl (Versed) 2 mg 1X ONCE IV 11/18/21 02:00 11/18/21 02:01 DC 11/18/21 01:27 Fentanyl Citrate (Fentanyl 2ml Vial) 100 mcg 1X ONCE IV 11/18/21 02:00 11/18/21 02:01 DC 11/18/21 01:27 Iodixanol (Visipaque 320) 100 ml 1X ONCE IART 11/18/21 02:00 11/18/21 02:01 DC 11/18/21 02:09 Lidocaine HCl (Lidocaine 1% 20ml Vial) 20 ml 1X ONCE INJ 11/18/21 02:00 11/18/21 02:01 DC 11/18/21 01:48 Heparin Sodium (Porcine) (Heparin Sodium) 4,000 unit 1X ONCE IV 11/18/21 02:30 11/18/21 02:31 DC 11/18/21 02:15 Nitroglycerin (Nitroglycerin) 200 mcg 1X ONCE IART 11/18/21 02:30 11/18/21 02:31 DC 11/18/21 02:00 Clopidogrel Bisulfate (Plavix) 300 mg 1X ONCE PO 11/18/21 02:30 11/18/21 02:31 DC 11/18/21 02:30 Sodium Chloride 1,000 ml @ 100 mls/hr Q10H IV 11/18/21 02:45 11/18/21 12:44 11/18/21 02:10 Justifications for Admission Other Justification CHARMAINE FLORIAN MD Nov 18, 2021 12:41
--- NOTE | 2021-11-18 13:44 | CARD ---
MR#: [id number] Date of Study: 11/18/2021 Ordering Physician: PB RAMIREZ, Referring Physician: PB RAMIREZ, Tech: Ana Maria Vega [facility] APPROVED REPORT EXAM: Two-dimensional and M-mode echocardiogram with Doppler and color Doppler. Other Information Quality : AverageHR: 50bpm Rhythm : NSR INDICATION Non STEMI Surgery/Intervention CABG: RISK FACTORS Hypertension 2D DIMENSIONS RVDd3.5 (2.9-3.5cm)Left Atrium(2D)5.1 (1.6-4.0cm) IVSd1.4 (0.7-1.1cm)Aortic Root(2D)3.2 (2.0-3.7cm) LVDd4.9 (3.9-5.9cm)LVOT Diameter2.6 (1.8-2.4cm) PWd1.2 (0.7-1.1cm)LVDs3.2 (2.5-4.0cm) FS (%) 34.6 %SV70.7 ml LVEF(%)63.6 (>50%) Aortic Valve AoV Peak Omid.222.9cm/sAoV VTI51.0cm AO Peak GR.19.9mmHgAO Mean GR.10mmHg AI P 1/2 [id number] Mitral Valve MV E Mhqpcwga754.7cm/sMV DECEL [id number] MV A Fhfauamw45.3cm/sE/A Ratio1.1 Pulmonary Valve PV Peak Ingnjcld410.5cm/s Tricuspid Valve TR P. Eeoawphe108zz/sTR Peak Gr.28mmHg LEFT VENTRICLE The left ventricle is normal size. There is mild concentric left ventricular hypertrophy. The left ve ntricular systolic function is normal and the ejection fraction is within normal range. Estimated eje ction fraction 55-60%. There is normal LV segmental wall motion. Transmitral Doppler flow pattern is Grade I-abnormal relaxation pattern. RIGHT VENTRICLE The right ventricle is normal size. There is normal right ventricular wall thickness. The right ventr icular systolic function is normal. ATRIA The left atrium is mildly dilated. The right atrium size is normal. The interatrial septum is intact with no evidence for an atrial septal defect or patent foramen ovale as noted on 2-D or Doppler imagi ng. AORTIC VALVE The aortic valve is normal in structure and function. Doppler and Color Flow revealed trace aortic re gurgitation. There is no significant aortic valvular stenosis. MITRAL VALVE The mitral valve is normal in structure and function. There is no evidence of mitral valve prolapse. There is no mitral valve stenosis. Doppler and Color-flow revealed mild mitral regurgitation. TRICUSPID VALVE The tricuspid valve is normal in structure and function. Doppler and Color Flow revealed trace tricus pid regurgitation. Estimated PAP 30-32 mmHG. There is no tricuspid valve stenosis. PULMONIC VALVE Doppler and Color Flow revealed mild to moderate pulmonic valvular regurgitation. There is no pulmoni c valvular stenosis. GREAT VESSELS The aortic root is normal in size. The ascending aorta is normal in size. The IVC is normal in size a nd collapses >50% with inspiration. PERICARDIAL EFFUSION There is no evidence of significant pericardial effusion. Critical Notification Critical Value: No <Conclusion> The left ventricular systolic function is normal and the ejection fraction is within normal range. E stimated ejection fraction 55-60%. There is normal LV segmental wall motion. Signed by : Pb Ramirez, Electronically Approved : 11/18/2021 13:44:14
--- NOTE | 2021-11-18 15:56 | NUR ---
SS following for discharge planning. SS reviewed pt chart and discussed with pt RN. Pt is from home with spouse and is currently on room air. Pt had heart cath on 11/18/2021. Cardiology following. SS will continue to follow for discharge planning.
[2021-11-18] MEDS: ATORVASTATIN CALCIUM 40 MG TABLET. PO SCH (20:27)
[2021-11-19 02:21] VITALS: BP 155/70
[2021-11-19 05:54] LABS: HEMATOCRIT 27.1 % (39.0-53.0); HEMOGLOBIN 8.8 g/dL (13.0-17.5); RED BLOOD COUNT 2.91 x10^6/uL (4.30-5.70); WHITE BLOOD COUNT 7.7 x10^3/uL (4.0-11.0)
[2021-11-19 06:15] LABS: CALCIUM 8.5 mg/dL (8.5-10.1); CREATININE 1.9 mg/dL (0.7-1.3); GFR 34.4; POTASSIUM 4.3 mmol/L (3.5-5.1)
[2021-11-19 07:00] VITALS: BP 166/75
[2021-11-19] MEDS: CARVEDILOL 12.5 MG TABLET. PO SCH (08:21)
[2021-11-19] MEDS: CLOPIDOGREL BISULFATE 75 MG TABLET PO SCH (08:21)
[2021-11-19 08:22] VITALS: BP 166/75
[2021-11-19] MEDS: ASPIRIN CHEWABLE 81 MG TABLET. PO SCH (08:22)
[2021-11-19] MEDS ORDERED: CLOP75TA PO (09:06)
--- NOTE | 2021-11-19 09:48 | PDOC ---
[employer] PROGRESS NOTE Date of Service DOS: DATE: 11/19/21 TIME: 09:46 Chief Complaint Chief Complaint NSTEMI - on heparin GTT. High risk CAD, classic symptoms relieved with 2x NTG. CAD; s/p CABG and PCI/stent in 2010. S/P PCI with stenting 06/14/2020 to saphenous vein graft to the obtuse marginal as well. Benito bhakta RVR -quickly resolved over several hours on 11/19/2019 2 in the morning Hypertension - prn hydralazine, nitropaste Hyperlipidemia -statin CKD - stable, will monitor renal function Carotid arterial disease - historic Chronic venous insufficiency Elevated fasting glucose - A1c 5.6 FEN - Cardiac diet PPX - heparin FULL CODE Dispo - inpatient pending cardiology recommendations could possibly discharge within the next 24 hours. History of Present Illness History of Present Illness Mr Rhodes is a 81yo male with PMHx HTN, HLD, CAD s/p remote CABG and subsequent PCI in 2010 and 2019 told his he thought he was having a heart attack. He noted substernal chest pain at rest 04/02 Took 2 NTG with minimal relief. EMS was called. Was given nitro and ASA en route, which improved pain. No recent fevers/illness. Has a h/o CAD with CABG in and subsequent stent placement in 2010. Follows with [facility]. No recent cardiac cath or stress test. EKG sinus rhythm 72 bpm normal axis and intervals no T WI or ST segment elevation minimal ST depressions in lead I, QTC 431 Chest radiograph with no acute abnormalities. Placed on heparin GTT and admitted for further care with cardiology consultation. 11/17: Chest pain is nearly resolved. No shortness of breath. Does have occasional twinges. After he discussed with cardiology he is opted for left coronary angiogram 11/18: Around 1 AM patient experienced atrial fibrillation with RVR was not symptomatic until a few minutes later when he experienced the same substernal chest pain significant pain in the left arm. He went urgently to the cardiac catheterization and had in-stent angioplasty with significant relief no new stent placement. Still his carvedilol and calcium channel apolonia. Is normal sinus rhythm in the 50s and pain-free this morning eating breakfast. Echo performed: The left ventricular systolic function is normal and the ejection fraction is within normal range. Estimated ejection fraction 55-60%. There is normal LV segmental wall motion. 3/29: No further atrial fibrillation overnight. Chest pain-free no shortness of breath. Discussed with cardiology will need to reinitiate clopidogrel for 1 additional year after in-stent angioplasty. We will hold his home AUNDREA inhibitor given renal insufficiency hold HCTZ given renal insufficiency will have outpatient follow-up with cardiology for further event monitoring. Consults: Cardiology Vitals/I&O Vitals/I&O: Vital Signs Date Time Temp Pulse Resp B/P (MAP) Pulse Ox O2 Delivery O2 Flow Rate FiO2 11/19/21 08:22 60 166/75 11/19/21 08:00 Nasal Cannula 11/19/21 07:00 99.1 18 95 99.1 11/18/21 08:00 2.0 I & O 11/18/21 11/18/21 11/19/21 15:00 23:00 07:00 Intake Total 540 ml 380 ml 300 ml Output Total 1 ml 2 ml Balance 539 ml 380 ml 298 ml Physical Exam General: Alert, Oriented X3, Cooperative, mild distress Abdomen: Normal bowel sounds, Soft, No tenderness, No hepatosplenomegaly, No masses Extremities: No clubbing, No cyanosis, No edema, Normal pulses, No tenderness/swelling Skin: No rashes, No breakdown, No significant lesion Labs Labs: Laboratory Tests Test 11/19/21 05:45 White Blood Count 7.7 x10^3/uL (4.0-11.0) Red Blood Count 2.91 x10^6/uL (4.30-5.70) Hemoglobin 8.8 g/dL (13.0-17.5) Hematocrit 27.1 % (39.0-53.0) Mean Corpuscular Volume 93 fL (79-100) Mean Corpuscular Hemoglobin 30 pg (25-35) Mean Corpuscular Hemoglobin Concent 33 g/dL (31-37) Red Cell Distribution Width 13.0 % (11.5-14.5) Platelet Count 139 x10^3/uL (140-400) Sodium Level 144 mmol/L (136-145) Potassium Level 4.3 mmol/L (3.5-5.1) Chloride Level 110 mmol/L (98-107) Carbon Dioxide Level 23 mmol/L (21-32) Anion Gap 11 (6-14) Blood Urea Nitrogen 39 mg/dL (8-26) Creatinine 1.9 mg/dL (0.7-1.3) Estimated GFR (Cockcroft-Gault) 34.4 Glucose Level 101 mg/dL (70-99) Calcium Level 8.5 mg/dL (8.5-10.1) Assessment and Plan Assessmemt and Plan Problems Medical Problems: (1) Chest pain Status: Acute Comment Review of Relevant I have reviewed the following items samm (where applicable) has been applied. Justifications for Admission Other Justification CHARMAINE FLORIAN MD Nov 19, 2021 09:48
--- NOTE | 2021-11-19 09:49 | PDOC3 ---
Discharge Summary Visit Information Date of Admission: Nov 14, 2021 Date of Discharge: Nov 19, 2021 Admitting Diagnosis: Chest pain, NSTEMi Final Diagnosis Problems Medical Problems: (1) Chest pain Status: Acute Brief Hospital Course Allergies Allergies Coded Allergies Type Severity Reaction Last Updated Verified No Known Drug Allergies 11/15/21 No Vital Signs Vital Signs Date Time Temp Pulse Resp B/P (MAP) Pulse Ox O2 Delivery O2 Flow Rate FiO2 11/19/21 08:22 60 166/75 11/19/21 08:00 Nasal Cannula 11/19/21 07:00 99.1 18 95 99.1 11/18/21 08:00 2.0 Lab Results Laboratory Tests Test 11/17/21 11:12 11/17/21 16:34 11/17/21 22:48 11/18/21 00:04 Troponin I High Sensitivity 181 ng/L (4-75) 136 ng/L (4-75) Heparin Anti-Xa Act, Unfractionated 0.44 IU/mL (0.30-0.70) 0.34 IU/mL (0.30-0.70) Test 11/18/21 02:09 11/18/21 05:40 11/19/21 05:45 Activated Clotting Time 186 sec (92-181) White Blood Count 6.4 x10^3/uL (4.0-11.0) 7.7 x10^3/uL (4.0-11.0) Red Blood Count 2.91 x10^6/uL (4.30-5.70) 2.91 x10^6/uL (4.30-5.70) Hemoglobin 9.1 g/dL (13.0-17.5) 8.8 g/dL (13.0-17.5) Hematocrit 26.9 % (39.0-53.0) 27.1 % (39.0-53.0) Mean Corpuscular Volume 93 fL (79-100) 93 fL (79-100) Mean Corpuscular Hemoglobin 31 pg (25-35) 30 pg (25-35) Mean Corpuscular Hemoglobin Concent 34 g/dL (31-37) 33 g/dL (31-37) Red Cell Distribution Width 12.6 % (11.5-14.5) 13.0 % (11.5-14.5) Platelet Count 159 x10^3/uL (140-400) 139 x10^3/uL (140-400) Sodium Level 142 mmol/L (136-145) 144 mmol/L (136-145) Potassium Level 4.3 mmol/L (3.5-5.1) 4.3 mmol/L (3.5-5.1) Chloride Level 108 mmol/L (98-107) 110 mmol/L (98-107) Carbon Dioxide Level 25 mmol/L (21-32) 23 mmol/L (21-32) Anion Gap 9 (6-14) 11 (6-14) Blood Urea Nitrogen 34 mg/dL (8-26) 39 mg/dL (8-26) Creatinine 1.7 mg/dL (0.7-1.3) 1.9 mg/dL (0.7-1.3) Estimated GFR (Cockcroft-Gault) 39.1 34.4 Glucose Level 99 mg/dL (70-99) 101 mg/dL (70-99) Calcium Level 8.3 mg/dL (8.5-10.1) 8.5 mg/dL (8.5-10.1) Laboratory Tests Test 11/19/21 05:45 White Blood Count 7.7 x10^3/uL (4.0-11.0) Red Blood Count 2.91 x10^6/uL (4.30-5.70) Hemoglobin 8.8 g/dL (13.0-17.5) Hematocrit 27.1 % (39.0-53.0) Mean Corpuscular Volume 93 fL (79-100) Mean Corpuscular Hemoglobin 30 pg (25-35) Mean Corpuscular Hemoglobin Concent 33 g/dL (31-37) Red Cell Distribution Width 13.0 % (11.5-14.5) Platelet Count 139 x10^3/uL (140-400) Sodium Level 144 mmol/L (136-145) Potassium Level 4.3 mmol/L (3.5-5.1) Chloride Level 110 mmol/L (98-107) Carbon Dioxide Level 23 mmol/L (21-32) Anion Gap 11 (6-14) Blood Urea Nitrogen 39 mg/dL (8-26) Creatinine 1.9 mg/dL (0.7-1.3) Estimated GFR (Cockcroft-Gault) 34.4 Glucose Level 101 mg/dL (70-99) Calcium Level 8.5 mg/dL (8.5-10.1) Brief Hospital Course Mr Rhodes is a 81yo male with PMHx HTN, HLD, CAD s/p remote CABG and subsequent PCI in 2010 and 2019 told his he thought he was having a heart attack. He noted substernal chest pain at rest 04/02 Took 2 NTG with minimal relief. EMS was called. Was given nitro and ASA en route, which improved pain. No recent fevers/illness. Has a h/o CAD with CABG in and subsequent stent placement in 2010. Follows with [facility]. No recent cardiac cath or stress test. EKG sinus rhythm 72 bpm normal axis and intervals no T WI or ST segment elevation minimal ST depressions in lead I, QTC 431 Chest radiograph with no acute abnormalities. Placed on heparin GTT and admitted for further care with cardiology consultation. 11/17: Chest pain is nearly resolved. No shortness of breath. Does have occasional twinges. After he discussed with cardiology he is opted for left coronary angiogram 11/18: Around 1 AM patient experienced atrial fibrillation with RVR was not symptomatic until a few minutes later when he experienced the same substernal chest pain significant pain in the left arm. He went urgently to the cardiac catheterization and had in-stent angioplasty with significant relief no new st ent placement. Still his carvedilol and calcium channel apolonia. Is normal sinus rhythm in the 50s and pain-free this morning eating breakfast. Echo performed: The left ventricular systolic function is normal and the ejection fraction is within normal range. Estimated ejection fraction 55-60%. There is normal LV segmental wall motion. 11/19: No further atrial fibrillation overnight. Chest pain-free no shortness of breath. Discussed with cardiology will need to reinitiate clopidogrel for 1 additional year after in-stent angioplasty. We will hold his home AUNDREA inhibitor given renal insufficiency hold HCTZ given renal insufficiency will have outpatient follow-up with cardiology for further event monitoring. Consults: Cardiology NSTEMI - on heparin GTT. High risk CAD, classic symptoms relieved with 2x NTG. Noted with in-stent narrowing improved with angioplasty 11/18/2021 CAD; s/p CABG and PCI/stent in 2010. S/P PCI with stenting 06/14/2020 to saphenous vein graft to the obtuse marginal as well. A. fib RVR -quickly resolved over several hours on 11/18/2021 in the morning Hypertension - prn hydralazine, nitropaste Hyperlipidemia -statin CKD - stable, will monitor renal function Carotid arterial disease - historic Chronic venous insufficiency Elevated fasting glucose - A1c 5.6 Greater than 30 minutes spent on discharge home with self-care Discharge Information Condition at Discharge: Improved Follow Up: Weeks (1) Disposition/Orders: D/C to Home Scheduled Aspirin (Aspirin) 81 Mg Tab.chew, 81 MG PO DAILY for blood thinner, #100 Ref 3 Prescribed by: LEE LOPEZ on 06/15/20953 Last Action: Continued on 11/16/211419 by CHARMAINE FLORIAN MD Brimonidine Tartrate (Alphagan P) 5 Ml Drops, 1 DROP EACHEYE BID for glaucoma, #5 Ref 2 (Reported) Entered as Reported by: KATEY BOUDREAUX on 11/16/21824 Last Action: New Order on 11/16/21824 by KATEY BOUDRAEUX Carvedilol (Carvedilol) 25 Mg Tablet, 12.5 MG PO BIDWMEALS for CARDIAC, #60 Ref 2 Prescribed by: LEE LOPEZ on 06/15/20953 Last Action: Converted on 11/16/211418 by ODALIS SERVIN RN Clopidogrel Bisulfate (Clopidogrel) 75 Mg Tablet, 1 TAB PO DAILY for cardiac stent for 90 Days, #90 Ref 3 Prescribed by: CHARMAINE FLORIAN MD on 11/19/21905 Ezetimibe (Zetia) 10 Mg Tablet, 10 MG PO DAILY for high cholesterol, (Reported) Entered as Reported by: VENKATA LÓPEZ on 06/13/20 163 Garlic (Garlic) 1,000 Mg Capsule, 1,000 MG PO DAILY for supplement, (Reported) Entered as Reported by: VENKATA LÓPEZ on 06/13/20 163 Hydralazine Hcl (Hydralazine Hcl) 50 Mg Tablet, 1 TAB PO TID for blood pressure, #90 Ref 5 (Reported) Entered as Reported by: KATEY BOUDREAUX on 11/16/21812 Last Action: Continued on 11/16/211418 by ODALIS SERVIN RN Nifedipine (Nifedipine Er) 30 Mg Tablet.er, 3 TAB PO DAILY for Blood pressure, #30 Ref 5 (Reported) Entered as Reported by: KATEY BOUDREAUX on 11/16/21816 Last Action: Converted on 11/16/211418 by ODALIS SERVIN RN [place]-3/Dha/Epa/Fish Oil (Fish Oil 1,200 mg Softgel) 1 Each Capsule.dr, 1 CAP PO DAILY for supplement for 30 Days, #30 Ref 0 (Reported) Entered as Reported by: VENKATA LÓPEZ on 06/13/20 163 Rosuvastatin Calcium (Crestor) 40 Mg Tablet, 40 MG PO HS for FOR CHOLESTEROL, #30 Ref 3 Prescribed by: LEE LOPEZ on 06/15/20953 Last Action: Converted on 11/16/211418 by ODALIS SERVIN RN Vitamin D3/Folic Acid (Noxifol-D3 2,500 Unit-1 mg Tab) 2,500 Unit Tablet, 1 TAB PO DAILY for supplement for 30 Days, #30 Ref 0 (Reported) Entered as Reported by: VENKATA LÓPEZ on 06/13/201638 Vitamin E Acetate (Vitamin E) 400 Unit Capsule, 400 UNIT PO DAILY for supplement, (Reported) Entered as Reported by: VENKATA LÓPEZ on 06/13/201638 Discontinued Medications Losartan/Hydrochlorothiazide (Losartan-Hctz 100-12.5 Mg Tab) 1 Each Tablet, 1 TAB PO DAILY for cholesterol, #30 Ref 5 Prescribed by: LEE LOPEZ on 06/15/20953 Last Action: Converted on 11/16/211418 by ODALIS SERVIN RN Torsemide (Torsemide) 10 Mg Tablet, 1 TAB PO DAILY for blood pressure for 30 Days, #30 Ref 0 (Reported) Entered as Reported by: KATEY BOUDREAUX on 11/16/21845 Last Action: New Order on 11/16/21845 by KATEY BOUDREAUX Justicifation of Admission Dx: Justifications for Admission: Justification of Admission Dx: Yes MN: Acute NSTEMI CHARMAINE FLORIAN MD Nov 19, 2021 09:49
--- NOTE | 2021-11-19 10:07 | CARD ---
MR#: [id number] Date of Study: 11/18/2021 Ordering Physician: JANICE MCCLELLAND, Referring Physician: JANICE MCCLELLAND, Tech: Lavern Marquez RTR APPROVED REPORT Technologist: Lavern Marquez RTR Nurse: Chantel Mejia RN Procedure(s) performed: fluoro time 14.2min dose: 50.3 gYCM2 COntrast:77 min moderate sed: 53 min LHC, Coronary angiography, Complex PTCA of the SVG to LCx. INDICATION The indication(s) include : non-STEMI . [facility] Clinical Frailty Scale [facility] Clinical Frailty Scale: Moderately Frail Heart Failure Heart Failure: Yes If Yes, Newly Diagnosed: No If Yes, HF Type: Diastolic If Yes, NYHA Class: Class III CASE TECHNIQUE IV conscious sedation was used throughout procedure with appropriate monitoring and was performed in the presence of a registered nurse who was an independent trained observer other than the physician p erforming the procedure. During this case, Fluoroscopy and low osmolar contrast were used for imaging . Specimen(s) Removed: N/A Estimated Blood loss: 15 cc's. PROCEDURE NARRATIVE Clinical information: 81-year-old male presented to the hospital with significant chest pain and elevated troponin. He was planned for elective cardiac catheterization the next morning but due to acute EKG changes he was ta kellee emergently to the catheterization laboratory. Procedure details: Under 1% lidocaine local anesthesia a 6 German sheath was placed in the right common femoral artery. There was significant aortic tortuosity and therefore this required the short 6 German sheath to be replaced by a long 45 cm destination sheath. Next, diagnostic angiography was performed with a 6 Far[facility] JR4, JARETT and MPA catheters. Left ventricular end-diastolic pressure was obtained with a 6 German JR4 catheter and a pull back was performed. Findings: Aorta 140/80 LVEDP 15 mmHg Coronary angiography: Due to known chronic kidney disease and prior severe kaw vessel coronary art raffi disease, the left main and RCA were not injected Bypass angiography: YOU to LAD is widely patent without any evidence of anastomotic stenosis SVG to distal RCA is widely patent with mild to moderate irregularities of up to 50% SVG to OM1 has a patent mid body graft stent followed by a 90% in-stent restenosis Interventional technique: Heparin was used for anticoagulation. Through a 6 German JR4 guide catheter a Prowater wire was plac ed in the distal OM1. Balloon angioplasty was then performed with a 3 mm noncompliant balloon at 20 raul. Final angiography demonstrated excellent stent expansion with GUNNER-3 flow. The patient receive d Plavix at case completion. At case completion the groin sheath was removed and hemostasis was achi eved via a Angio-Seal device. No acute complications. Conclusion 1. Normal left-sided filling pressures 2. Severe kaw three-vessel coronary artery disease 3. 3 of 3 bypass grafts patent with severe in-stent restenosis of the distal anastomotic stent invol ving the saphenous vein graft to the obtuse marginal. 4. Successful plain old balloon angioplasty of the distal anastomotic in-stent restenosis with a 3.0 x 12 mm noncompliant balloon at 20 raul. Recommendations 1. The etiology of the in-stent restenosis is likely secondary to stent struts dilation to allow for better outflow involving the bifurcation. Patient had an excellent angioplasty result and we will d efer any further layers of stents at this time. In the future, the patient could be considered for a drug-eluting balloon or complex bifurcation PCI versus kaw circumflex PCI. 2. Aspirin 81 mg daily 3. Plavix 75 mg daily Signed by : Janice Mcclelland, Electronically Approved : 11/19/2021 10:06:37
[2021-11-19] MEDS ORDERED: CLOPIDOGREL BISULFATE 75 MG TABLET PO ONE (10:30)
--- NOTE | 2021-11-19 10:40 | NUR ---
DISCHARGED PATIENT TO HOME. DISCHARGE INSTRUCTIONS GIVEN. PIV AND HEART MONITOR REMOVED. ESCORTED PATIENT OFF UNIT PER WHEELCHAIR INTO A PRIVATE VEHICLE.
--- NOTE | 2021-11-19 17:44 | PDOC ---
CARDIOLOGY PROGRESS NOTE SUBJECTIVE: No acute events overnight. patient feels better. Denies any chest pain. OBJECTIVE: Vital Signs/I&O: Vital Signs Date Time Temp Pulse Resp B/P (MAP) Pulse Ox O2 Delivery O2 Flow Rate FiO2 11/19/21 08:22 60 166/75 11/19/21 08:00 Nasal Cannula 11/19/21 07:00 99.1 18 95 99.1 11/18/21 08:00 2.0 I & O 11/18/21 11/18/21 11/19/21 15:00 23:00 07:00 Intake Total 540 ml 380 ml 300 ml Output Total 1 ml 2 ml Balance 539 ml 380 ml 298 ml Objective: GEN.: No apparent distress. Alert and oriented. HEENT: Head is normocephalic, atraumatic NECK: Supple. LUNGS: Clear to auscultation. HEART: RRR, S1, S2 present. Peripheral pulses intact ABDOMEN: Soft, nontender. Positive bowel sounds. EXTREMITIES: Without any cyanosis. NEUROLOGIC: Normal speech, normal tone PSYCHIATRIC: Normal affect, normal mood. SKIN: No ulcerations CURRENT MEDICATIONS: Current Medications Medications (Trade) Dose Ordered Sig/Vinicio Route PRN Reason Start Time Stop Time Status Last Admin Dose Admin Clopidogrel Bisulfate (Plavix) 300 mg 1X ONCE PO 11/19/21 10:30 11/19/21 10:31 DC 11/19/21 10:30 DIAGNOSTIC TESTING: No new issues Labs: Laboratory Tests 11/19/21 05:45 Laboratory Tests Test 11/19/21 05:45 White Blood Count 7.7 x10^3/uL (4.0-11.0) Red Blood Count 2.91 x10^6/uL (4.30-5.70) L Hemoglobin 8.8 g/dL (13.0-17.5) L Hematocrit 27.1 % (39.0-53.0) L Mean Corpuscular Volume 93 fL (79-100) Mean Corpuscular Hemoglobin 30 pg (25-35) Mean Corpuscular Hemoglobin Concent 33 g/dL (31-37) Red Cell Distribution Width 13.0 % (11.5-14.5) Platelet Count 139 x10^3/uL (140-400) L Sodium Level 144 mmol/L (136-145) Potassium Level 4.3 mmol/L (3.5-5.1) Chloride Level 110 mmol/L (98-107) H Carbon Dioxide Level 23 mmol/L (21-32) Anion Gap 11 (6-14) Blood Urea Nitrogen 39 mg/dL (8-26) H Creatinine 1.9 mg/dL (0.7-1.3) H Estimated GFR (Cockcroft-Gault) 34.4 Glucose Level 101 mg/dL (70-99) H Calcium Level 8.5 mg/dL (8.5-10.1) ASSESSMENT: 1. NSTEMI 2. CKD 3. PAF PLAN: He will have close f/u in the next 4-6 weeks. Supportive care. Justicifation of Admission Dx: Justifications for Admission: Justification of Admission Dx: Yes DC: Acute NSTEMI JANICE RAMIREZ MD Nov 19, 2021 17:44
== END 2021-11-19 10:40 | disposition home or self-care (01) | DRG 250 ==
LOC: ER 17:52 → 6 SOUTH 19:34 → OBSVTOIN 11-16 21:11
PROVIDERS: ADMIT Internal Medicine; ATTEND Internal Medicine
PROC: 02703ZZ Dilation of Coronary Artery, One Artery, Percutaneous Approach (ICD-10-PCS; principal; 2021-11-19)
PROC: 4A023N7 Measurement of Cardiac Sampling and Pressure, Left Heart, Percutaneous Approach (ICD-10-PCS; 2021-11-19)
PROC: B2131ZZ Fluoroscopy of Multiple Coronary Artery Bypass Grafts using Low Osmolar Contrast (ICD-10-PCS; 2021-11-19)
PROC: B2181ZZ Fluoroscopy of Left Internal Mammary Bypass Graft using Low Osmolar Contrast (ICD-10-PCS; 2021-11-19)
PROC: B2111ZZ Fluoroscopy of Multiple Coronary Arteries using Low Osmolar Contrast (ICD-10-PCS; 2021-11-19)
DX: T82.855A Stenosis of coronary artery stent, initial encounter (principal); I21.4 Non-ST elevation (NSTEMI) myocardial infarction; I12.9 Hypertensive chronic kidney disease with stage 1 through stage 4 chronic kidney disease, or unspecified chronic kidney disease; E78.00 Pure hypercholesterolemia, unspecified; E78.5 Hyperlipidemia, unspecified; I16.0 Hypertensive urgency; I25.10 Atherosclerotic heart disease of native coronary artery without angina pectoris; I25.2 Old myocardial infarction; I48.0 Paroxysmal atrial fibrillation; I87.2 Venous insufficiency (chronic) (peripheral); N18.9 Chronic kidney disease, unspecified; Z82.49 Family history of ischemic heart disease and other diseases of the circulatory system; Z87.891 Personal history of nicotine dependence; Z95.1 Presence of aortocoronary bypass graft; Z98.61 Coronary angioplasty status; K21.9 Gastro-esophageal reflux disease without esophagitis; M19.90 Unspecified osteoarthritis, unspecified site; I73.9 Peripheral vascular disease, unspecified
CPT/HCPCS: 36415; 71045; 80048; 80053; 83036; 84484; 85025; 85027; 85347; 85520; 92920; 92937; 93005; 93306; 93455; 93925; 99152; 99153; C1725; C1769; C1894; G0269; G0378; G0379; J1160; J1644; J2250; J2270; J2405; J3010; J3490; J7030; Q9967; 99285-25; C8929